=== PATIENT | male | born 1965 | race Caucasian/White ===

== ENCOUNTER 2017-06-13 12:20 | Emergency (ER) | payer BC, MEDICARE ==
[~2017-06-13] VITALS: Ht 172.7 cm; Wt 148.0 kg
[~2017-06-13 12:20] MED LIST: ADVAI250I PO; ASPI81TA82 PO; AZAT50 PO; CALA240T PO; CETI10 PO; DANT25CA2 PO; DIAZ5 PO; FLON0.053; FURO1TAB93 PO; PAXI30TA7 PO; SYNT75TA PO; TEST200I13 IM; TIZA2TAB PO; TIZA4 PO; VENTAER INH
[2017-06-13 12:28] VITALS: BP 170/88; PULSE 108; RESP 20; TEMP 99.1; O2SAT 96
[2017-06-13] MEDS ORDERED: DIAZ10TA PO (12:45)
[2017-06-13] MEDS ORDERED: BACL10TA PO (12:45)
--- NOTE | 2017-06-13 12:50 | PD ---
HPI Chief Complaint: Fall Time Seen by Provider: 12:38 Travel History International Travel<30 days: No Contact w/Intl Traveler<30days: No Traveled to known affect area: No History of Present Illness HPI patient is here after a mechanical fall where he stub his right great toe and then preceded to fall. 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) Anxiety: Yes Depression: Yes Cancer: No Cardiovascular Problems: Yes Congestive Heart Failure: Yes Diabetes: Yes (HX PREDNISONE INDUCED) Patient Takes Glucophage: No Endocrine: Yes Gastrointestinal Disorders: Yes Genitourinary: No Hiatal Hernia: Yes (UMBILICAL HERNIA) Neurologic: No Psychiatric: Yes Respiratory: Yes Renal Failure: Yes Sleep Apnea: Yes Thyroid Disease: Yes (HYPOTHYROID) Past Surgical History Abdominal Surgery: Yes (HERNIA REPAIR) Cardiac Surgery: Yes (HX TEMPORARY PACEMAKER ) Gynecologic Surgery: Yes (LEFT TESTICAL REMOVAL) Neurologic Surgery: Yes (C2-C6 LAMINOPLASTY) Other Surgery: Yes (3 AV FISTULAS) Social History Alcohol Use: No Tobacco Use: No Substance Use: No Allergies-Medications (Allergen,Severity, Reaction): Coded Allergies: gabapentin (Verified Allergy, Intermediate, Swelling, 06/13/17) daptomycin (Verified Allergy, Unknown, 06/13/17) Uncoded Allergies: IM INJECTIONS (Adverse Reaction, Unknown, 06/13/17) STATES CAUSES THE MUSCLE TO GO INTO CONTINUOUS CONTRACTION Reported Meds & Prescriptions Reported Meds & Active Scripts Active Reported Ventolin Hfa 18 GM Inh (Albuterol Sulfate) 90 Mcg/Act Aer 2 Puff INH Q4H PRN Aspirin Low Dose (Aspirin) 81 Mg Chew 81 Mg CHEW DAILY Imuran (Azathioprine) 50 Mg Tab 50 Mg PO BID Hazardous agent: use appropriate precautions for handling and disposal. Cetirizine (Cetirizine HCl) 10 Mg Tab 10 Mg PO DAILY Dantrium (Dantrolene Sodium) 25 Mg Cap 25 Mg PO TID Flonase Nasal [place] (Fluticasone Nasal [place]) 50 Mcg/Act [place] 50 Mcg EACH NARE DAILY Advair Diskus Inh (Fluticasone-Salmeterol Inh) 250-50 Mcg/Blist Aer 1 Puff INH BID Rinse mouth after use. Lasix (Furosemide) 40 Mg Tab 40 Mg PO DAILY Paxil (Paroxetine HCl) 30 Mg Tab 30 Mg PO DAILY Synthroid (Levothyroxine Sodium) 75 Mcg Tab 75 Mcg PO DAILY Testosterone Enanthate Inj (Testosterone Enanthate) 200 Mg/Ml Inj 300 Mg IM Q30D Zanaflex (Tizanidine HCl) 4 Mg Cap 4 Mg PO HS Zanaflex (Tizanidine HCl) 2 Mg Cap 2 Mg PO DAILY Baclofen 10 Mg Tab 10 Mg PO QID Diazepam 10 Mg Tab 20 Mg PO QID Review of Systems Except as stated in HPI: all other systems reviewed are Neg General / Constitutional: No: Fever Eyes: No: Visual changes HENT: No: Headaches Cardiovascular: No: Chest Pain or Discomfort Respiratory: No: Shortness of Breath Gastrointestinal: No: Abdominal Pain Genitourinary: No: Dysuria Musculoskeletal: Positive: Pain (rt toe, rt knee and forehead) Skin: No Rash Neurologic: No: Weakness Psychiatric: No: Depression Endocrine: No: Polydipsia Hematologic/Lymphatic: No: Easy Bruising Physical Exam Narrative GENERAL: SKIN: Warm and dry. HEAD: Normocephalic. EYES: Pupils equal and round. No scleral icterus. No injection or drainage. ENT: No nasal bleeding or discharge. Mucous membranes pink and moist. NECK: Trachea midline. No JVD. CARDIOVASCULAR: Regular rate and rhythm. RESPIRATORY: No accessory muscle use. Clear to auscultation. Breath sounds equal bilaterally. GASTROINTESTINAL: Abdomen soft, non-tender, nondistended. MUSCULOSKELETAL: Extremities without clubbing, cyanosis, or edema. No obvious deformities. noted abrasion to right knee, no crepitus, no lacerations and no laxity on examination...right toe has partially lifted great toenail...... NEUROLOGICAL: Awake and alert. No obvious cranial nerve deficits. Motor grossly within normal limits. Five out of 5 muscle strength in the arms and legs. Normal speech. PSYCHIATRIC: Appropriate mood and affect; insight and judgment normal. Data Data Last Documented VS Vital Signs Date Time Temp Pulse Resp B/P (MAP) Pulse Ox O2 Delivery O2 Flow Rate FiO2 06/13/17 12:28 99.1 108 20 170/88 (115) [address] Brain W/O Iv Contrast(Rout) (06/13/17 ) Toe (Min 2vws) (06/13/17 ) Knee, Complete (4vws) (06/13/17 ) Ed Discharge Order (06/13/17 14:36) MDM Medical Decision Making Medical Screen Exam Complete: Yes Emergency Medical Condition: Yes Medical Record Reviewed: Yes Differential Diagnosis ich v skull fx v knee fx v knee contusion v toe fx v toe dislocation Narrative Course patient noted to be hermes his abs and hyperventilating, which had not been occurring until i enter room, pt had been in room with nurse calmly giving report of his fall. however, even during this episode patient's extremities were relax and soft compartments to touch. advised patient that his studies were negative for brainbleed also no bone fractures or dislocations noted by radiologist either...at this time he requested ativan and dilaudid for his chronic condition, i advised that he can take medicine he already has prescribed , that no NEW injuries requiring narcotics. patient at that point gathered his belongings and stated "i'm just gonna go to another hospital that will give me what i want"....i advised patient that activity is doctor shopping for narcotics is illegal, but patient stated "i don't care" Diagnosis Primary Impression: right knee abrasion Additional Impression: Avulsion of toenail of right foot Patient Instructions: Abrasion (GEN), General Instructions Disposition: 01 DISCHARGE HOME Condition: Stable Uri Gupta MD Jun 13, 2017 12:50
[2017-06-13] MEDS ORDERED: TEST200I13 IM (13:00)
[2017-06-13] MEDS ORDERED: FLUT1SPR5 EACH NARE (13:00)
[2017-06-13] MEDS ORDERED: IMUR50TA5 PO (13:00)
[2017-06-13] MEDS ORDERED: FURO1TAB60 PO (13:00)
[2017-06-13] MEDS ORDERED: DANT25CA2 PO (13:00)
[2017-06-13] MEDS ORDERED: ZANA2CAP PO (13:00)
[2017-06-13] MEDS ORDERED: LEVO.075 PO (13:00)
[2017-06-13] MEDS ORDERED: VENTAER INH (13:00)
[2017-06-13] MEDS ORDERED: ASPI81CH6 CHEW (13:00)
[2017-06-13] MEDS ORDERED: CETI10 PO (13:00)
[2017-06-13] MEDS ORDERED: ADVA250A INH (13:00)
[2017-06-13] MEDS ORDERED: ZANA4CAP PO (13:00)
[2017-06-13] MEDS ORDERED: PAXI30TA7 PO (13:00)
--- NOTE | 2017-06-13 13:19 | RADRPT ---
EXAM DATE/TIME: 06/13/2017 13:00 [facility] COMPARISON: CT BRAIN W/O CONTRAST, December 19, 2014, 23:16. INDICATIONS : Fall today hit head. RADIATION DOSE: 46.14 CTDIvol (mGy) MEDICAL HISTORY : Cardiovascular disease. Congestive heart failure. Diabetes SURGICAL HISTORY : Testical removed hernia repair ENCOUNTER: Initial ACUITY: 1 day PAIN SCALE: 7/10 LOCATION: cranial TECHNIQUE: Multiple contiguous axial images were obtained of the head. Using automated exposure control and adj ustment of the mA and/or kV according to patient size, radiation dose was kept as low as reasonably a chievable to obtain optimal diagnostic quality images. DICOM format image data is available electro nically for review and comparison. FINDINGS: CEREBRUM: The ventricles are normal for age. No evidence of midline shift, mass lesion, hemorrhage or acute in farction. No extra-axial fluid collections are seen. POSTERIOR FOSSA: The cerebellum and brainstem are intact. The 4th ventricle is midline. The cerebellopontine angle i s unremarkable. EXTRACRANIAL: The visualized portion of the orbits is intact. SKULL: The calvaria is intact. No evidence of skull fracture. CONCLUSION: No acute disease. Nitni Grey Jr., MD on June 13, 2017 at 13:14 Board Certified Radiologist. This report was verified electronically.
--- NOTE | 2017-06-13 14:29 | RADRPT ---
EXAM DATE/TIME: 06/13/2017 13:36 [facility] COMPARISON: TOE RIGHT 1ST DIGIT(MIN 2VWS), December 20, 2014, 9:52. INDICATIONS : Fell today, pain in right knee and right great toe, muscle spasms MEDICAL HISTORY : Renal failure, chronic. Stiff Person Syndrome SURGICAL HISTORY : fistula, testicle removed ENCOUNTER: Initial ACUITY: 1 day PAIN SCORE: 7/10 LOCATION: Right great toe FINDINGS: Mild degenerative changes without fracture. CONCLUSION: Negative for fracture or dislocation. Follow up in 7-10 days is suggested if symptoms persist. Derek Soria MD FACR on June 13, 2017 at 14:27 Board Certified Radiologist. This report was verified electronically.
--- NOTE | 2017-06-13 14:29 | RADRPT ---
EXAM DATE/TIME: 06/13/2017 13:39 [facility] COMPARISON: No previous studies available for comparison. INDICATIONS : Fell today, pain in right knee and right great toe, muscle spasms MEDICAL HISTORY : Renal failure, chronic. Stiff Person Syndrome SURGICAL HISTORY : fistula, testicle removed ENCOUNTER: Initial ACUITY: 1 day PAIN SCORE: 7/10 LOCATION: Right knee FINDINGS: Four view examination of the right knee demonstrates no evidence of fracture or dislocation. Bony mi neralization is normal. The articular surfaces are intact. The suprapatellar soft tissues have a no rmal configuration. CONCLUSION: Negative for fracture or dislocation. Follow up in 7-10 days is suggested if symptoms persist. Derek Soria MD FACR on June 13, 2017 at 14:28 Board Certified Radiologist. This report was verified electronically.
== END 2017-06-13 15:31 | disposition home or self-care (01) ==
LOC: NEPD 12:20
DX: S80.211A Abrasion, right knee, initial encounter (principal); S91.201A Unspecified open wound of right great toe with damage to nail, initial encounter; R51 Headache; E11.9 Type 2 diabetes mellitus without complications; E03.9 Hypothyroidism, unspecified; N19 Unspecified kidney failure; G47.30 Sleep apnea, unspecified; W22.09XA Striking against other stationary object, initial encounter; W18.39XA Other fall on same level, initial encounter; Z87.09 Personal history of other diseases of the respiratory system; Z87.39 Personal history of other diseases of the musculoskeletal system and connective tissue; Z86.2 Personal history of diseases of the blood and blood-forming organs and certain disorders involving the immune mechanism; Z86.59 Personal history of other mental and behavioral disorders; Z86.79 Personal history of other diseases of the circulatory system; Z87.19 Personal history of other diseases of the digestive system
CPT/HCPCS: 70450; 73564; 73660; 99284